=== PATIENT | male | born 1950 | race Caucasian/White ===

== ENCOUNTER 2018-01-30 07:42 | Emergency (ER) | payer MEDICARE, OTHER ==
[2018-01-30 07:51] VITALS: BP 127/69
--- NOTE | 2018-01-30 08:36 | EDPHY ---
HPI/HX/ROS/PE/MDM Narrative: CHIEF COMPLAINT: Arm pain following pneumonia vaccine HPI: This patient is a 67 year old male with history of hyperlipidemia, CT s/p CABG, and prior CVA/TIA. Yesterday,he saw his primary care provider and received a flu vaccine and pneumonia vaccine in the left and right arm respectively. Two hours later, he developed right arm pain. This has been worsening since onset. This morning, he feels his upper arm is "grotesquely swollen up". He notes additional adverse effects including being "drenched with perspiration" and feeling dizzy and imbalanced. His right upper extremity pain is so intense he has reduced function of the extremity due to discomfort, and this prevents him from doing his daily work and life activities. He denies fever, shortness of breath, chest pain, urticaria, or other associated symptoms. REVIEW OF SYSTEMS: A comprehensive 10 system review of systems is otherwise negative aside from elements mentioned in the history of present illness and medical decision making. PMH: CABG 05/22, CT 04/21, Orthopedic surgery, Hyperlipidemia, Hepatitis, History of CVA/TIA SOCIAL HISTORY: Single. Employed. Lives in [place]. PHYSICAL EXAM: General:Patient is alert, in no acute distress. ENT:Eyes are normal to inspection. ENT inspection normal. Neck: Normal inspection. Full range of motion. Respiratory:No respiratory distress. Breath sounds normal bilaterally. Cardiovascular: Regular rate and rhythm. Strong peripheral pulses. Normal cap refill. Abdomen:The abdomen is nontender to palpation. There are no peritoneal signs. There are normal bowel sounds. Back: Normal to inspection. No tenderness to palpation. Skin: Normal color. No rash. Warm and dry. Extremities: Very mild swelling to right deltoid consistent with post- vaccination. Normal appearance. no erythema or fluctuance. Patient able to move right arm but with some discomfort. Normal pulses. Neuro: Oriented x3. Normal motor function. Normal sensory function. Normal finger to nose, heel to johnson bilaterally. Normal gait. ED Course: 67 y/o male presents with an adverse reaction to the pneumococcal vaccine he received yesterday at his primary care provider's office. Exam is largely unremarkable, the patient is well-appearing. Very mild swelling to the right deltoid area is appreciated. Discussed routine recovery from vaccine administration and methods for pain relief. The patient is reassured that his current reaction is not serious. Plan to discharge home in good condition with right arm sling for comfort. The patient will take Tylenol for pain relief. He will follow up with his primary care provider. Return precautions discussed. The patient is comfortable with this plan. - Data Points Medications Given: Discontinued Medications Acetaminophen (Tylenol) 650 mg PO EDNOW ONE Stop: 01/30/18 08:41 Last Admin: 01/30/18 08:49 Dose: 650 mg General Time Seen by Provider: 01/30/18 08:26 Initial Vital Signs: Initial Vital Signs Temperature (C) 36.7 C 01/30/18 07:48 Heart Rate 67 01/30/18 07:48 Respiratory Rate 18 01/30/18 07:48 Blood Pressure 127/69 H 01/30/18 07:48 O2 Sat (%) 96 01/30/18 07:48 O2 Delivery Mode Room Air Allergies/Adverse Reactions: No Known Allergies Allergy (Verified 01/30/18 07:45) Home Medications: Medication Instructions Recorded Ascorbic Acid [Vitamin C 500 mg 500 mg PO DAILY 05/04/15 (*)] Aspirin EC [Aspirin EC 81 mg (*)] 81 mg PO DAILY 05/04/15 Ferrous Sulfate [Ferrous Sulf 325 325 mg PO BID #30 tab 05/14/15 MG (*)] Metoprolol Tartrate [Lopressor 25 12.5 mg PO BID #0 tab 05/14/15 mg (*)] Nitroglycerin [Nitrostat 0.4 mg 0.4 mg SL PRN PRN #0 btl 05/14/15 (*)] Atorvastatin Calcium [Lipitor 40 40 mg PO HS 06/09/15 mg (*)] Zolpidem Tartrate [Ambien 5MG (*)] 5 mg PO HS 06/09/15 Eliquis 01/30/18 Zetia 01/30/18 Departure - Departure Disposition: Home, Routine, Self-Care Clinical Impression: Pain in right upper arm, Adverse reaction to pneumococcal vaccine Condition: Good Instructions: Pneumococcal Vaccine for Adults (ED) Additional Instructions: Wear sling for comfort. Take Tylenol as directed on the packaging as needed for pain relief. Follow up with your primary care provider on Thursday. Return for fever, worsening pain, or other worsening of condition. Referrals: Farhad Orozco MD [Primary Care Provider] - As per Instructions Stand Alone Forms: Work Excuse Report Scribed for: Jasper Longoria Report Scribed by: Sayra Edmond Date of Report: 01/30/18 Time of Report: 08:46 Physician Review and Approval Statement: Portions of this note were transcribed by an ED scribe. I personally performed the history, physical exam, and medical decision making; and confirm the accuracy of the information in the transcribed note.
[2018-01-30] MEDS ORDERED: ACETAMINOPHEN 325 MG TAB PO ONE (08:40)
== END 2018-01-30 09:02 | disposition home or self-care (01) ==
DX: M79.601 Pain in right arm (principal); T50.B95A Adverse effect of other viral vaccines, initial encounter; E78.5 Hyperlipidemia, unspecified; K75.9 Inflammatory liver disease, unspecified